=== PATIENT | male | born 1985 | race African-American/Black ===

== ENCOUNTER 2020-05-09 13:14 | Emergency (ER) | payer SELFPAY ==
[~2020-05-09] VITALS: Ht 177.8 cm; Wt 66.0 kg
[2020-05-09 13:29] VITALS: BP 95/56
== END 2020-05-09 19:39 | disposition left against medical advice (07) ==
LOC: ER 13:31
DX: Z53.21 Procedure and treatment not carried out due to patient leaving prior to being seen by health care provider (principal); I49.9 Cardiac arrhythmia, unspecified
CPT/HCPCS: 93005